=== PATIENT | male | born 1990 | race Hispanic/Latino ===

== ENCOUNTER 2016-10-15 23:20 | Emergency (ER) | payer OTHER ==
[2016-10-15 23:48] VITALS: BMI 36.7
[2016-10-16 00:01] VITALS: RESP 16; TEMP 98.7
[2016-10-16] MEDS ORDERED: TDAP Vaccine 0.5 mL Syr IM ONE (00:04)
[2016-10-16] MEDS ORDERED: Sodium Chloride 0.9% 1,000 ML IV STA (00:04)
--- NOTE | 2016-10-16 00:34 | ED PDOC ---
Arrival/HPI - General Chief Complaint: Syncope Time Seen by Provider: 10/15/16 23:50 Historian: Patient - History of Present Illness Narrative History of Present Illness (Text): 10/16/16 00:31 Patient w/ pmh of ADHD, reports as he was urinating in the bathroom he immediately felt dizzy, with no vertigo, then all he recalls is waking up on the floor and he noticed he had blood on his forehead. Patient states that he sustained a laceration to the L eye brow. Reports of a L sided mild headache at this time. Reports (-) worsening of symptoms with movement of head. Otherwise: ( -) other injury, (-) neck / back pain, (-) tinnitus, (-) hearing loss, (-) chest pain, (-) dyspnea, (-) fever, (-) vomiting, (-) diarrhea, (-) syncope, (- ) GI bleeding. PMD Jeff Past Medical History - Provider Review Nursing Documentation Reviewed: Yes - Cardiac Hx Cardiac Disorders: No - Pulmonary Hx Respiratory Disorders: No - Neurological Hx Neurological Disorder: No - HEENT Hx HEENT Disorder: No - Renal Hx Renal Disorder: No - Endocrine/Metabolic Hx Endocrine Disorders: No - Hematological/Oncological Hx Blood Disorders: No - Integumentary Hx Dermatological Disorder: No - Musculoskeletal/Rheumatological Hx Musculoskeletal Disorders: No - Gastrointestinal Hx Gastrointestinal Disorders: No - Genitourinary/Gynecological Hx Genitourinary Disorders: No - Psychiatric Hx Psychophysiologic Disorder: No Hx Substance Use: No - Surgical History Hx Open Reduction Internal Fixation: Yes Hx Orthopedic Surgery: (Rt. Knee) - Anesthesia Hx Anesthesia: Yes Family/Social History - Physician Review Nursing Documentation Reviewed: Yes Family/Social History: No Known Family HX Smoking Status: Never Smoked Hx Alcohol Use: No Hx Substance Use: No Allergies/Home Meds Allergies/Adverse Reactions: Allergies No Known Allergies Allergy (Verified 10/15/16 23:48) Home Medications: Home Meds Medication Instructions Recorded Confirmed Lisdexamfetamine Dimesylate 50 mg PO DAILY 10/15/16 10/15/16 [Vyvanse] Review of Systems - Review of Systems Constitutional: Normal. absent: Fatigue, Weight Change, Fevers ENT: Normal. absent: Hearing Changes, Sore Throat, Sinus Congestion Respiratory: Normal. absent: SOB, Cough, Sputum Cardiovascular: Normal. absent: Chest Pain, Palpitations, Edema Gastrointestinal: Normal. absent: Abdominal Pain, Stool Changes, Appetite Changes Musculoskeletal: Normal. absent: Arthralgias, Back Pain, Neck Pain Skin: Normal, Laceration. absent: Rash, Pruritis, Skin Lesions Neurological: Normal, Dizziness. absent: Headache, Focal Weakness Physical Exam - Physical Exam Narrative Physical Exam (Text): 10/16/16 00:34 GENERAL APPEARANCE: Patient is awake, alert, oriented x 3, in no acute distress. SKIN: Warm, dry; (-) cyanosis, (+) 1.5 cm laceration to the L eyebrow. HEAD: (-) scalp swelling or tenderness. EYES: (-) conjunctival pallor. ENMT: TMs normal. Mucous membranes moist. NECK: (-) tenderness, (-) stiffness, (-) lymphadenopathy. Carotids: (-) bruit. CHEST AND RESPIRATORY: (-) rales, (-) rhonchi, (-) wheezes; breath sounds equal bilaterally. HEART AND CARDIOVASCULAR: (-) irregularity; (-) murmur, (-) gallop. ABDOMEN AND GI: Soft; (-) distention, (-) tenderness, (-) rebound, (-) guarding , (-) palpable masses, (-) flank tenderness. EXTREMITIES: (-) deformity; (-) edema. Distal pulses: present. NEURO AND PSYCH: Mental status as above. pharmaceutical physician: (-) nystagmus; Pupils equal & reactive, EOMI, (-) facial asymmetry; (-) dysarthria; tongue and uvula midline. Strength and DTRs symmetric. Gait: normal. Vital Signs Temp Pulse Resp BP Pulse Ox 10/16/16 00:00 98.7 F 101 H 16 144/82 99 Finger Stick Blood Glucose: 120 Medical Decision Making ED Course and Treatment: 10/16/16 00:35 26 yo M w/ pmh of ADHD, reports as he was urinating in the bathroom he immediately felt dizzy, then all he recalls is waking up on the floor and he noticed he had blood on his forehead. Plan: -- Labs -- IV fluids -- Urinalysis -- EKG -- Orthostatics -- Tylenol PO -- Tdap IM -- Reassess and disposition -- CT head w/o contrast FS :120 EKG: Sinus tach at 104 bpm, (-) acute ST changes, as read by PA. Orthostatics: wnl, see RN note The wound is L eyebrow. The wound was copiously irrigated with normal saline. The wound was prepped and draped in the normal sterile fashion. The wound was explored for foreign bodies and none were found. The wound was anesthetised using lidocaine. The edges were reapproximated using 2 6-0 prolene sutures by CAIT. Bleeding was well controlled and the patient tolerated the procedure well. CT head (-). On re-evaluation, pt remains awake, alert and oriented x 3 in no acute distress. Repeat neuro exam shows no acute focal findings. Labs and CT results d/w the pt in great detail. Pt notified of his Hgb of 18.4, and advised that he must follow up result with his pmd. Based on history, exam and diagnostic results plan will be for outpt follow up. Patient was instructed to follow up with primary care physician in 1-2 days without fail. Return to the emergency room at any time for any new or worsening symptoms. Patient states he fully agrees with and understands discharge instructions. States that he agrees with the plan and disposition. Verbalized and repeated discharge instructions and plan. I have given the patient opportunity to ask any additional questions. - Lab Interpretations Lab Results: 10/16/16 00:33 10/16/16 00:33 Lab Results 10/16/16 00:35: D-Dimer, Quantitative 0.19 10/16/16 00:33: Sodium 143, Potassium 3.5 L, Chloride 101, Carbon Dioxide 28, Anion Gap 18, BUN 7, Creatinine 0.9, Est GFR ( Amer) > 60, Est GFR (Non- Af Amer) > 60, Random Glucose 102, Calcium 9.2, Total Bilirubin 0.8, AST 21, ALT 46, Alkaline Phosphatase 58, Total Protein 6.8, Albumin 4.2, Globulin 2.6, Albumin/Globulin Ratio 1.6 10/16/16 00:33: WBC 10.5 D, RBC 5.81, Hgb 18.4 H*, Hct 49.1, MCV 84.5, MCH 31.7 , MCHC 37.5 H, RDW 12.5, Plt Count 203, MPV 9.4, Gran % 67.4, Lymph % (Auto) 22.7, [place] % (Auto) 7.8 H, Eos % (Auto) 1.9, Baso % (Auto) 0.2, Gran # 7.10 H, Lymph # 2.4, [place] # 0.8 H, Eos # 0.2, Baso # 0.02 I have reviewed the lab results: Yes (Hgb 18, K 3.5 Pt given Kcl po.) - RAD Interpretation Narrative RAD Interpretations (Text): 10/16/16 01:32 CT head w/o contrast: FINDINGS: Brain: The white-montez differentiation is preserved demonstrating no acute territorial type infarct. No acute intracranial hemorrhage is seen. No edema. Midline shift: There is no midline shift. Ventricles: No ventriculomegaly. Bones/joints: The calvarium demonstrates no evidence for a depressed fracture. Soft tissues: There is soft tissue swelling/hematoma of the left supraorbital region and frontal scalp. Sinuses: Unremarkable as visualized. No acute sinusitis. Mastoid air cells: No mastoid effusion. IMPRESSION: 1. There is soft tissue swelling/hematoma of the left supraorbital region and frontal scalp. 2. No acute intracranial abnormality. Dictated and Authenticated by: Cortes Jones MD 10/16/2016 1:20 AM Eastern Time ([place] & [place]) Radiology Orders: 10/16/16 00:04 HEAD W/O CONTRAST [CT] Stat - Medication Orders Current Medication Orders: Discontinued Medications Acetaminophen (Tylenol 325mg Tab) 975 mg PO STAT STA Stop: 10/16/16 00:04 Last Admin: 10/16/16 00:46 Dose: 975 mg Sodium Chloride (Sodium Chloride 0.9%) 1,000 mls @ 1,000 mls/hr IV .Q1H STA Stop: 10/16/16 01:03 Last Admin: 10/16/16 00:46 Dose: 1,000 mls/hr Potassium Chloride (Potassium Chloride Oral Soln) 20 meq PO STAT STA Stop: 10/16/16 00:59 Last Admin: 10/16/16 01:09 Dose: 20 meq Tetanus/Reduced Diphtheria/Acell Pertussis (Boostrix Vaccine Inj) 0.5 ml IM .ONCE ONE Stop: 10/16/16 00:05 Last Admin: 10/16/16 01:08 Dose: 0.5 ml - PA / INTERNATIONAL TRADE ANALYST / Resident Statement MD/DO has reviewed & agrees with the documentation as recorded. Disposition/Present on Arrival - Present on Arrival Any Indicators Present on Arrival: No History of DVT/PE: No History of Uncontrolled Diabetes: No Urinary Catheter: No History of Decub. Ulcer: No History Surgical Site Infection Following: None - Disposition Have Diagnosis and Disposition been Completed?: Yes Diagnosis: Head injury, Micturition syncope Disposition: HOME/ ROUTINE Disposition Time: 01:30 Patient Plan: Discharge Patient Problems: Current Active Problems Problem Status Onset Head injury Acute Micturition syncope Acute Condition: STABLE Discharge Instructions (ExitCare): Syncope (ED), Head Injury (ED) Print Language: UKRAINIAN Additional Instructions: Thank you for letting us take care of you today. You were treated for micturition syncope, facial laceration. The emergency medical care you received today was directed at your acute symptoms. Have sutures removed after 5 days. Return to the Emergency Department if your symptoms worsen, do not improve, or if you have any other problems. Please contact your doctor in 2 days for re-evaluation and follow up. Bring any paperwork you were given at discharge with you along with any medications you are taking to your follow up visit. Our treatment cannot replace ongoing medical care by a primary care provider (PCP) outside of the emergency department. Thank you for allowing the [facility] team to be part of your care today. Forms: [employer] (Belgian)
[2016-10-16 00:44] LABS: BASO # 0.02 K/mm3 (0.0-2.0); BASO % 0.2 % (0.0-3.0); EOS # 0.2 (0.0-0.7); EOS % 1.9 % (1.5-5.0); GRAN % 67.4 % (50.0-68.0); LYMPH # 2.4 (1.2-3.4); LYMPH % 22.7 % (22.0-35.0); MEAN CELL VOLUME 84.5 fL (80.0-105.0); MEAN CORPUSCULAR HEMOGLOBIN 31.7 pg (25.0-35.0); MEAN CORPUSCULAR HGB CONC 37.5 g/dl (31.0-37.0); MEAN PLATELET VOLUME 9.4 fl (7.0-11.0); MONO # 0.8 (0.1-0.6); MONO % 7.8 % (1.0-6.0); PLATELET COUNT 203 10^3/uL (120.0-450.0); RBC 5.81 10^6/uL (3.5-6.1); RED CELL DISTRIBUTION WIDTH 12.5 % (11.5-14.5); WHITE BLOOD COUNT 10.5 10^3/ul (4.5-11.0)
[2016-10-16 00:52] LABS: HEMOGLOBIN 18.4 gm/dL (14.0-18.0)
[2016-10-16 00:54] LABS: ALB/GLOB RATIO 1.6 (1.1-1.8); ALBUMIN 4.2 g/dL (3.0-4.8); ALT/SGPT 46 U/L (7-56); AST/SGOT 21 U/L (15-59); BLOOD UREA NITROGEN 7 mg/dL (7-21); CALCIUM 9.2 mg/dL (8.4-10.5); GFR AFRICAN-AMERICAN > 60; GFR NON-AFRICAN AMERICAN > 60
[2016-10-16] MEDS ORDERED: Potassium Chloride 20 mEq/15 ml LIQ UD PO STA (00:58)
[2016-10-16 01:54] VITALS: BP 117/68; PULSE 78; O2SAT 98
--- NOTE | 2016-10-16 09:55 | CT ---
PROCEDURE: CT HEAD WITHOUT CONTRAST. HISTORY: head trauma COMPARISON: None available. TECHNIQUE: Axial computed tomography images were obtained through the head/brain without intravenous contrast. Radiation dose: Total exam DLP = 725 mGy-cm. This CT exam was performed using one or more of the following dose reduction techniques: Automated exposure control, adjustment of the mA and/or kV according to patient size, and/or use of iterative reconstruction technique. FINDINGS: HEMORRHAGE: No intracranial hemorrhage. BRAIN: No mass effect or edema. No atrophy or chronic microvascular ischemic changes. VENTRICLES: Unremarkable. No hydrocephalus. CALVARIUM: Unremarkable. There is minimal soft tissue swelling over the left supraorbital region. PARANASAL SINUSES: Unremarkable as visualized. No significant inflammatory changes. MASTOID AIR CELLS: Unremarkable as visualized. No inflammatory changes. OTHER FINDINGS: The report concurs with the preliminary [facility] report IMPRESSION: No acute intracranial findings
--- NOTE | 2016-10-16 10:00 | CARD ---
APPROVED REPORT EKG Measurement Heart [id number] <Conclusion> Sinus tachycardia Minimal voltage criteria for LVH, may be normal variant NSSTW changes
== END 2016-10-16 01:53 | disposition home or self-care (01) ==
LOC: ED 23:20
DX: S09.90XA Unspecified injury of head, initial encounter (principal); X58.XXXA Exposure to other specified factors, initial encounter; R39.198 Other difficulties with micturition; R55 Syncope and collapse
CPT/HCPCS: 70450; 80053; 82948; 85025; 85378; 90471; 90715; 93005; 96360; 99285; J7040